=== PATIENT | male | born 1965 | race Caucasian/White ===

== ENCOUNTER 2017-02-12 16:07 | Emergency (ER) | payer MEDICARE, OTHER ==
--- NOTE | 2017-02-12 16:26 | EDM.PDOC ---
[id number] pain, fall, hit head Time Seen by Provider: 02/12/17 16:20 Source of Information: Reports: Patient, EMS, Family History Limitations: Reports: No limitations - History of Present Illness INITIAL COMMENTS - FREE TEXT/NARRATIVE: pt states was going out to shovel snow in drive way must have slipped on ice fell hit head on driveway per bystander was out couple secs maybe 5 called ems per ems pt was up on hands knees and dazed upon arrival Timing/Duration: Reports: Minutes: Location: Reports: occipital Quality: Reports: ache Severity: mild Place of Occurrence: home Context: Reports: fall Associated Symptoms: Reports: headache - Related Data Allergies/ADRs: Allergies Allergy/AdvReac Type Severity Reaction Status Date / Time No Known Allergies Allergy Verified 02/12/17 16:13 Home Meds: Home Meds Divalproex Sodium [Depakote] 1.5 tab PO BID 02/12/17 [History] OXcarbazepine [Trileptal] 900 mg PO BID 02/12/17 [History] Past Medical History - Past Health History Medical/Surgical History: Denies Medical/Surgical History Neurological History: Reports: Seizure Other Neuro History: last sz 20 yrs ago Oncologic (Cancer) History: Reports: Bone Dermatologic History: Reports: Psoriasis - Past Surgical History HEENT Surgical History: Reports: None Other Cardiovascular Surgeries/Procedures: 2-3 ribs removed 2nd bone ca yrs ago Musculoskeletal Surgical History: Reports: Other (see below) Other Musculoskeletal Surgeries/Procedures:: Lower left ribs removed due to bone cancer. Social & Family History - Tobacco Use Smoking Status *Q: Former Smoker - Alcohol Use Days Per Week of Alcohol Use: 0 - Recreational Drug Use Recreational Drug Use: No ED ROS GENERAL - Review of Systems Review Of Systems: See Below Constitutional: Reports: no symptoms, decreased appetite. Denies: fever, chills , malaise, weakness HEENT: Reports: No symptoms Respiratory: Reports: No Symptoms Cardiovascular: Reports: No symptoms Endocrine: Reports: no symptoms GI/Abdominal: Reports: No symptoms : Reports: no symptoms. Denies: incontinence, urgency Musculoskeletal: Reports: back pain (pt with chronic back pain daily no change today ) Skin: Reports: no symptoms Neurological: Reports: Headache. Denies: Confusion, Dizziness, Numbness, Tingling, Weakness (dickens dull 2/10 over occipital area neg vision changes ) Psychiatric: Reports: No symptoms Hematologic/Lymphatic: Reports: no symptoms Immunologic: Reports: no symptoms ED EXAM, HEAD INJURY - Physical Exam Exam: See Below Exam Limited By: No limitations General Appearance: alert, WD/WN, no apparent distress Head: atraumatic, normocephalic. No: scalp lacerations, scalp swelling, scalp abrasions, scalp tenderness, sinus tenderness, facial tenderness Nexus Criteria: No: posterior, midline cervical tenderness, evidence of intoxication, altered level of consciousness, focal neurological deficit, painful distracting injuries Eyes: bilateral eye: EOMI, normal inspection, PERRL Ears: normal external exam, normal canal, hearing grossly normal, normal TMs Nose: normal inspection, normal mucousa, no blood Throat/Mouth: Normal inspection, Normal lips, Normal teeth, Normal gums, Normal oropharynx, Normal voice, No airway compromise Neck: non-tender, full range of motion, normal alignment, normal inspection. No : tender midline Respiratory: no respiratory distress, lungs clear, normal breath sounds, no accessory muscle use, chest non-tender Cardiovascular: normal peripheral pulses, regular rate, rhythm GI/Abdominal Exam (Abbreviated): normal bowel sounds, soft, non tender, no organomegaly Back Exam: normal inspection, full range of motion, paraspinal tenderness (mild ttp left medial aspect ). 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 No : abnormal cerebellar tests, abnormal hurricane tracker II-XII, motor weakness Skin: Normal color, Warm/dry - Billy Coma Score Best Eye Response ([place]): (4) open spontaneously Best Verbal Response (Billy): (5) oriented Best Motor Response (Billy): (6) obeys commands Course - Vital Signs Text/Narrative:: ct head neg will check labs cbc bmp 2nd sz meds pt been told has been DM but does not want to do anything about it but will see pcp in next couple of days will not obs or admit or consider it explained risk vs benefits Last Recorded V/S: Last Vital Signs Temp 36.2 C 02/12/17 16:23 Pulse 75 02/12/17 16:23 Resp 20 02/12/17 16:23 BP 132/88 02/12/17 16:57 Pulse Ox 95 02/12/17 16:23 - Orders/Labs/Meds Orders: Active Orders 24 hr Category Date Time Status Head wo Cont [CT] Stat Exams 02/12/17 16:23 Taken Labs: Laboratory Tests 02/12/17 02/12/17 02/12/17 Range/Units 16:34 16:34 17:36 WBC 6.8 (4.0-10.0) x10^3/uL RBC 5.08 (4.5-6.0) x10^6/uL Hgb 15.3 (14.0-18.0) g/dL Hct 44.0 (40.0-52.0) % MCV 86.6 (78.0-93.0) fL MCH 30.1 (26.0-32.0) pg MCHC 34.8 (32.0-36.0) g/dL RDW Coeff of Miko 12.2 (10.0-15.0) % Plt Count 209 (130-400) x10^3/uL Neut % (Auto) 61.3 (50.0-80.0) % Lymph % (Auto) 29.3 (25.0-50.0) % [place] % (Auto) 7.1 (2.0-11.0) % Eos % (Auto) 1.3 (0.0-4.0) % Baso % (Auto) 1.0 (0.2-1.2) % Sodium 141 (136-145) mmol/L Potassium 4.0 (3.5-5.1) mmol/L Chloride 100 (98-107) mmol/L Carbon Dioxide 32 (21-32) mmol/L BUN 19 H (7-18) mg/dL Creatinine 1.0 (0.70-1.30) mg/dL Est Cr Clr Drug Dosing TNP Estimated GFR (MDRD) > 60 Glucose 255 H (74-106) mg/dL Calcium 8.8 (8.5-10.1) mg/dL Urine Color Yellow (YELLOW) Urine Appearance Clear (CLEAR) Urine pH 5.0 (5.0-8.0) Ur Specific [place] 1.020 Urine Protein 30 H (NEGATIVE) mg/dL Urine Glucose (UA) 500 H (NEGATIVE) mg/dL Urine Ketones 15 H (NEGATIVE) mg/dL Urine Occult Blood Negative (NEGATIVE) Urine Nitrite Negative (NEGATIVE) Urine Bilirubin Negative (NEGATIVE) Urine Urobilinogen 0.2 (0.2) EU/dL Ur Leukocyte Esterase Negative (NEGATIVE) Departure - Departure Time of Disposition: 17:20 Disposition: Home, Self-Care 01 Condition: good Clinical Impression: Hyperglycemia Closed head injury Qualifiers: Encounter type: initial encounter Qualified Code(s): S09.90XA - Unspecified injury of head, initial encounter Instructions: Head Injury, Adult Referrals: Zofia Corea [employer]ER [Primary Care Provider] - Forms: ED Department Discharge Additional Instructions: pt and given head injury instructions to return to er if anything changes or gets worse and follow up with primary provider on high blood sugar - Problem List & Annotations (1) Hyperglycemia SNOMED Code(s): 62583559 Code(s): R73.9 - HYPERGLYCEMIA, UNSPECIFIED Status: Acute (2) Closed head injury SNOMED Code(s): 284984716453 Code(s): S09.90XA - UNSPECIFIED INJURY OF HEAD, INITIAL ENCOUNTER Status: Acute - My Orders Last 24 Hours: My Active Orders 02/12/17 16:23 Head wo Cont [CT] Stat - Assessment/Plan Last 24 Hours: My Active Orders 02/12/17 16:23 Head wo Cont [CT] Stat
[2017-02-12 16:55] LABS: CHLORIDE,CL 100 mmol/L (98-107); SODIUM,NA 141 mmol/L (136-145)
[2017-02-12 17:00] VITALS: BP 132/88
== END 2017-02-12 18:05 | disposition home or self-care (01) ==
LOC: VM.ED 16:07
DX: S09.90XA Unspecified injury of head, initial encounter (principal); R73.9 Hyperglycemia, unspecified; Z87.891 Personal history of nicotine dependence; W00.0XXA Fall on same level due to ice and snow, initial encounter; Y92.009 Unspecified place in unspecified non-institutional (private) residence as the place of occurrence of the external cause
CPT/HCPCS: 36415; 70450; 80048; 81003; 85025; 99283-GF; 99284

== ENCOUNTER 2022-07-30 13:42 | Emergency (ER) | payer MEDICAID, MEDICARE, OTHER, SELFPAY ==
[2022-07-30 15:00] VITALS: BP 123/66; PULSE 73
== END 2022-07-30 16:30 | disposition home or self-care (01) ==
LOC: VM.ED 13:42
DX: M86.141 Other acute osteomyelitis, right hand (principal); E11.9 Type 2 diabetes mellitus without complications; E66.9 Obesity, unspecified; Z68.28 Body mass index [BMI] 28.0-28.9, adult; Z88.6 Allergy status to analgesic agent; Z79.899 Other long term (current) drug therapy; Z87.891 Personal history of nicotine dependence
CPT/HCPCS: 36415; 73140-F9; 85025; 99283

== ENCOUNTER 2025-06-20 20:21 | Emergency (ER) | payer MEDICARE, MEDICAID ==
[2025-06-20] MEDS ORDERED: Sodium Chloride 0.9% 10 ML Syringe FLUSH PRN (20:38)
[2025-06-20] MEDS ORDERED: Midazolam 1 MG/ML 2 ML SDV ONE (20:39)
[2025-06-20] MEDS: Midazolam 1 MG/ML 2 ML SDV IVPUSH ONE (20:40)
[2025-06-20 20:45] LABS: BASOPHILS ABSOLUTE AUTO 0.1 x10^3/uL (0.0-0.2); BASOPHILS PERCENT AUTO 0.6 % (0.2-1.2); EOSINOPHILS ABSOLUTE AUTO 0.1 x10^3/uL (0.0-0.5); EOSINOPHILS PERCENT AUTO 1.4 % (0.0-4.0); IMMATURE GRAN ABSOLUTE AUTO 0.01 x10^3/uL (0.00-0.07); IMMATURE GRAN PERCENT AUTO 0.10 % (0.00-0.43); LYMPHOCYTES ABSOLUTE AUTO 3.3 x10^3/uL (1.0-4.8); LYMPHOCYTES PERCENT AUTO 38.5 % (25.0-50.0); MONOCYTES ABSOLUTE AUTO 0.6 x10^3/uL (0.0-0.8); MONOCYTES PERCENT AUTO 7.1 % (2.0-11.0); NEUTROPHILS ABSOLUTE AUTO 4.5 x10^3/uL (1.8-7.7); NEUTROPHILS PERCENT AUTO 52.3 % (50.0-80.0); PLATELET COUNT,PLT 187 x10^3/uL (130-400); RED BLOOD CELL COUNT 3.83 x10^6/uL (4.5-6.0); WHITE BLOOD CELL COUNT,WBC 8.6 x10^3/uL (4.0-10.0)
[2025-06-20] MEDS: Ondansetron 4 MG/2 ML SDV IVPUSH ONE (20:46)
[2025-06-20 21:00] LABS: A/G RATIO 0.94; ALANINE AMINOTRANSFERASE,ALT 60 U/L (16-63); ASPARTATE AMNIOTRANSFERASE,AST 76 U/L (15-37); BILIRUBIN TOTAL 0.3 mg/dL (0.2-1.0); BLOOD UREA NITROGEN,BUN 55 mg/dL (7-18); CARBON DIOXIDE,CO2 26 mmol/L (21-32); CHLORIDE,CL 97 mmol/L (98-107); CREATININE 2.1 mg/dL (0.70-1.30); POTASSIUM,K 5.6 mmol/L (3.5-5.1); PROTEIN TOTAL,TP 6.8 g/dL (6.4-8.2); SODIUM,NA 138 mmol/L (136-145)
[2025-06-20 21:01] LABS: ESTIMATED GFR 35 mL/min (>=60); GLUCOSE RANDOM 516 mg/dL (70-99)
[2025-06-20] MEDS ORDERED: 50% Dextrose in Water 50 ML Syringe IVPUSH PRN ×2 (21:03→21:32)
[2025-06-20] MEDS: Insulin Regular, Human 100 Units/ML 10 ML Vial IV ONE ×2 (21:10→22:04)
== END 2025-06-20 21:44 | disposition short-term general hospital (02) ==
LOC: VM.ED 20:21
DX: E11.65 Type 2 diabetes mellitus with hyperglycemia (principal); R41.82 Altered mental status, unspecified; R00.1 Bradycardia, unspecified; E66.9 Obesity, unspecified; Z79.899 Other long term (current) drug therapy; Z88.8 Allergy status to other drugs, medicaments and biological substances
CPT/HCPCS: 36415; 51702; 71045; 80053; 83605; 84484; 85025; 96360; 96374; 96375; 99284; 99291-25; A9270-GY; J2250; J2405; J7030